=== PATIENT | male | born 1975 | race Caucasian/White ===

== ENCOUNTER 2020-04-14 15:54 | Emergency (ER) | payer BC, SELFPAY ==
[2020-04-14 15:57] VITALS: BP 183/95; PULSE 80; RESP 20; TEMP 36.7; O2SAT 97
--- NOTE | 2020-04-14 16:29 | ED.NECK ---
HPI - Neck Pain/Injury General Chief Complaint: Neck Pain/Injury Stated Complaint: neck pain Time Seen by Provider: 04/14/20 16:03 Source: patient Mode of arrival: ambulatory Limitations: no limitations History of Present Illness HPI Narrative: This is a 45 year old male who presents for evaluation of neck pain. He states he woke up last Tuesday morning with bilateral neck pain along the back. He states he thinks he just slept wrong. His pain is worse with moving his neck. HE denies any fall or acute injury. He denies pain radiating down his arms. HE denies numbness , tingling or arm weakness. He denies nausea, vomiting, fever, chills, cough, shortness of breath or chest pain. He reports he accidentally fell asleep in a chair a few days ago and his pain worsened. He was prescribed flexeril by his PCP and he took a dose at noon. He reports he coughed once so his family urged to come due to concern for covid. HE denies any symptoms or exposures. Related Data Allergies Allergy/AdvReac Type Severity Reaction Status Date / Time No Known Allergies Allergy Verified 04/14/20 16:01 Review of Systems Review of Systems: All systems reviewed & are unremarkable except as noted in HPI and below Constitutional: Constitutional: Denies chills and Denies fever(s) Eyes: Eyes: Denies change in vision ENT: Denies vertigo Cardiovascular: Cardiovascular: Denies chest pain Respiratory: Respiratory: Denies cough and Denies dyspnea Gastrointestinal: Gastrointestinal: Denies abdominal pain, Denies diarrhea and Denies vomiting Musculoskeletal: Comments: neck pain Neurologic: Denies dizziness, Denies focal weakness and Denies numbness [facility] Past Medical History Medical History (Updated 04/15/20 @ 00:00 by Background Daemon) Diabetes mellitus Hypertension Social History Social History Smoking status: Never smoker Gender identity (if verbalized by the patient): Male Exam Const: General: no acute distress and alert Orientation/consciousness: patient oriented x3 Eyes: Pupils: Equal, round and reactive pupils present EOM: EOMs intact bilaterally Neck: Neck: no lymphadenopathy and no meningeal signs Chest: Chest palpation & inspection: normal inspection of the chest Resp: Effort & Inspection: normal respiratory effort and no retractions Auscultation: clear to auscultation bilaterally Cardio: Rate: regular rate Rhythm: regular rhythm Heart sounds: no murmurs GI: GI Palp: Yes Soft to palpation, No Tenderness to palpation present (GI) and No Guarding due to palpation present (GI) Auscultation: normal bowel sounds Skin: General skin exam: normal color Rashes: no rashes Neuro: General: patient oriented x3, moves all extremities and no meningeal signs Cranial nerves: Yes Nystagmus not present Speech: normal speech Gait exam (Neuro): Normal gait present Psych: Mental Status: mental status grossly normal Affect: normal affect Course Reevaluation(s) Reevaluation #1: Patient states he feels better after toradol and valium. He is no focal deficits to suggest need for imaging. HE has appointment with PCP tomorrow Date: 04/14/20 Time: 17:56 Vital Signs Vital signs: Vital Signs Temperature 98.1 F 04/14/20 15:57 Pulse Rate 80 04/14/20 15:57 Respiratory Rate 20 04/14/20 15:57 Blood Pressure 183/95 H 04/14/20 15:57 Pulse Oximetry 97 04/14/20 15:57 Temperature 98.1 F 04/14/20 15:57 Pulse Rate 80 04/14/20 15:57 Respiratory Rate 20 04/14/20 15:57 Blood Pressure 183/95 H 04/14/20 15:57 Pulse Oximetry 97 04/14/20 15:57 Discharge Plan Discharge Clinical Impression: Torticollis Patient Disposition: Home, Self-Care Condition: Stable Instructions: Cervical Strain (ED), Spasmodic Torticollis (ED) Additional Instructions: Follow up with your primary care physician tomorrow. You can take 10 mg of cyclobenzaprine instead of 5 mg with Toradol. Prescriptions: New
[2020-04-14] MEDS: KETOROLAC (*BKC) 60 MG/2 ML VIAL IM (16:35)
[2020-04-14] MEDS: diazePAM (*CRX) 5 MG TABLET PO (16:38)
== END 2020-04-14 18:09 | disposition home or self-care (01) ==
PROVIDERS: Emergency Provider General Practice; PCP Internal Medicine
DX: M43.6 Torticollis (principal); E11.9 Type 2 diabetes mellitus without complications; I10 Essential (primary) hypertension
CPT/HCPCS: 96372; 99283; A9270; J1885

== ENCOUNTER 2021-09-28 21:44 | Emergency (ER) | payer OTHER, SELFPAY ==
--- NOTE | ~2021-09-28 | CT_ITS ---
EXAMINATION: CT abdomen pelvis w con DATE: 09/28/2021 23:36 INDICATION: Epigastric abdominal pain. TECHNIQUE: Computed tomography (CT) of the abdomen and pelvis was performed with 100 mL Omnipaque 350 intravenous contrast. Automated exposure control and iterative reconstruction technique were employe d. The dose-length product was 1049.89 mGy-cm. COMPARISON: None. FINDINGS: The visualized portions of the lung bases demonstrate mild atelectasis. No pleural effusion . The heart size is normal. No pericardial effusion. The liver, gallbladder, spleen, pancreas, and ad renal glands are normal. There are cysts in the kidneys measuring up to 10 mm on the right. There is a 4 mm stone in left kidney. There are no dilated loops of bowel. The appendix is normal. There is wa ll thickening of many loops of ileum, consistent with enteritis. There is liquid stool in the colon, suggestive of diarrhea. There is an umbilical hernia containing fat. There are no pathologically enla rged lymph nodes. There is trace ascites. There is mild thoracolumbar spondylosis. IMPRESSION: 1. Enteritis. Reviewed, dictated and finalized at location A. IMPRESSION: 1. Enteritis.
[2021-09-28 21:47] VITALS: BP 166/101; PULSE 86; RESP 19; TEMP 36.4; O2SAT 97
--- NOTE | 2021-09-28 22:16 | ED.ABDPAIN ---
HPI - Abdominal Pain General Chief Complaint: Abdominal Pain <Juanita Guillermo PA-C - Last Filed: 09/29/21 01:43> Stated Complaint: abd pain x 1 day <JONNY Baig Last Filed: 09/29/21 01:43> Time Seen by Provider: 09/28/21 22:09 <Juanita Guillermo PA-C - Last Filed: 09/29/21 01:43> Source: patient <JONNY Baig Last Filed: 09/29/21 01:43> Mode of arrival: ambulatory <JONNY Baig Last Filed: 09/29/21 01:43> Limitations: no limitations <Juanita Guillermo PA-C - Last Filed: 09/29/21 01:43> History of Present Illness HPI narrative: This is a 46 year old male that presents to the ER for epigastric pain since yesterday. Reports a constant dull ache. Intermittent sharp pains. Reports some diarrhea. Denies fever, nausea, vomiting. <Juanita Guillermo PA-C - Last Filed: 09/29/21 01:43> Related Data Home Medications: Home Medications Medication Instructions Recorded Confirmed No Home Medications 09/28/21 09/28/21 <Juanita Guillermo PA-C - Last Filed: 09/29/21 01:43> Allergies/Adverse Reactions: Allergies Allergy/AdvReac Type Severity Reaction Status Date / Time No Known Allergies Allergy Verified 09/28/21 21:51 <Juanita Guillermo PA-C - Last Filed: 09/29/21 01:43> Review of Systems Review of Systems: CONSTITUTIONAL: Denies fever GASTROINTESTINAL: Reports abdominal pain, and diarrhea. Denies nausea and vomiting <JONNY Baig Last Filed: 09/29/21 01:43> All systems reviewed & are unremarkable except as noted in HPI and below <Juanita Guillermo PA-C - Last Filed: 09/29/21 01:43> [facility] Past Medical History Medical History: Medical History (Updated 09/29/21 @ 01:28 by Juanita Guillermo PA-C) Diabetes mellitus Hypertension <Juanita Guillermo PA-C - Last Filed: 09/29/21 01:43> Social History Social History: Social History (Updated 09/28/21 @ 22:16 by Juanita Guillermo PA-C) Smoking status: Never smoker Alcohol intake: current Substance use: never Gender identity (if verbalized by the patient): Male <Juanita Guillermo PA-C - Last Filed: 09/29/21 01:43> Exam Narrative: GENERAL: Well-appearing, well-nourished, and in no acute distress. HEAD: Normocephalic, atraumatic. EYES: EOMI. CHEST: Clear to auscultation. No respiratory distress. No wheezes rales or rhonchi HEART: Regular rate and rhythm. No murmur heard. Normal peripheral pulses. ABDOMEN: Soft, nontender, nondistended, normal active bowel sounds. EXTREMITIES: Normal range of motion. No edema. SKIN: Warm, dry, no rash. NEURO: No focal deficits. Alert and oriented x3. PSYCH: Normal mood and affect <Juanita Guillermo PA-C - Last Filed: 09/29/21 01:43> Course WINE CONSULTANT/PA Physician Supervision For this patient encounter, I reviewed the WINE CONSULTANT or PA documentation, treatment plan, and medical decision making <Chandrakant Betancourt MD - Last Filed: 09/29/21 03:55> Vital Signs Vital signs: Vital Signs Temperature 97.6 F 09/28/21 21:47 Pulse Rate 86 09/28/21 21:47 Respiratory Rate 19 09/28/21 21:47 Blood Pressure 166/101 H 09/28/21 21:47 Pulse Oximetry 97 09/28/21 21:47 Oxygen Delivery Room Air 09/28/21 21:47 Temperature 97.6 F 09/28/21 21:47 Pulse Rate 78 09/29/21 02:15 Respiratory Rate 19 09/29/21 02:15 Blood Pressure 150/94 H 09/29/21 02:15 Pulse Oximetry 97 09/29/21 02:15 Oxygen Delivery Room Air 09/28/21 21:47 <Juanita Guillermo PA-C - Last Filed: 09/29/21 01:43> Vital Signs Temperature 97.6 F 09/28/21 21:47 Pulse Rate 86 09/28/21 21:47 Respiratory Rate 19 09/28/21 21:47 Blood Pressure 166/101 H 09/28/21 21:47 Pulse Oximetry 97 09/28/21 21:47 Oxygen Delivery Room Air 09/28/21 21:47 Temperature 97.6 F 09/28/21 21:47 Pulse Rate 78 09/29/21 02:15 Respiratory Rate 19 09/29/21 02:15 Blood Pressure 150/94 H 09/29/21 02:15 Pulse Oximetry 97 09/29/21 02:1
[2021-09-28] MEDS: ONDANSETRON INJ 4 MG/2 ML VIAL IV PUSH (22:33)
[2021-09-28] MEDS: PANTOPRAZOLE SODIUM IV 40 MG VIAL IV PUSH (22:33)
[2021-09-28 22:45] LABS: Basophils Percent Auto 0.5 % (0.2-1.2); Eosinophils Absolute Auto 0.1 K/mm3 (0-0.3); Eosinophils Percent Auto 1.7 % (0-4.4); Hemoglobin 15.5 g/dL (14.0-18.0); Immature Granulocyte Absolute 0.02 K/mm3 (0.00-0.031); Immature Granulocyte Percent A 0.2 % (0-0.5); Lymphocytes Absolute Auto 1.46 K/mm3 (0.9-3.2); Lymphocytes Percent Auto 18.2 % (18.3-44.2); Mean Corpuscular HGB Conc 33.7 g/dl (32-36); Mean Corpuscular Hemoglobin 27.8 pg (26-34); Mean Corpuscular Volume 82.4 fl (80-100); Mean Platelet Volume 9.9 fl (7.4-10.4); Monocytes Absolute Auto 0.8 K/mm3 (0.1-0.6); Neutrophils Absolute Auto 5.6 K/mm3 (1.3-6.7); Neutrophils Percent Auto 69.4 % (45.5-73.1); Platelet Count Result 217 k/mm3 (150-375); Red Blood Count 5.58 M/mm3 (4.6-6.20); Red Cell Distribution Width 12.8 % (11.5-14.5)
[2021-09-28 22:59] LABS: Alanine Aminotransferase 39 U/L (6-50); Albumin Level 4.5 g/dL (3.5-5.1); Alkaline Phosphatase 76 U/L (38-126); Anion Gap 9 mmol/L (8-16); Aspartate Amino Transferase 30 U/L (17-59); Bilirubin,Total 0.7 mg/dL (0.2-1.3); Blood Urea Nitrogen 18 mg/dL (9-20); Calcium 9.2 mg/dL (8.4-10.2); Carbon Dioxide 29 mmol/L (22-30); Chloride 95 mmol/L (98-107); Estimated CRCL calculation 100 ml/min; Estimated Glomerular Filt Rate > 60; Glucose 376 mg/dL (65-110); Lipase 96 U/L (23-300); Potassium 3.9 mmol/L (3.4-5.0); Sodium 133 mmol/L (137-145)
--- NOTE | 2021-09-28 23:15 | PC.NURSE ---
called Gianna in lab @[id number] to add on HBG A1C -NC
[2021-09-28 23:24] LABS: Hemoglobin A1C 11.2 % (<5.7)
[2021-09-28 23:39] LABS: Appearance Urine Clear (Clear); Bilirubin Urine Negative (Negative); Color Urine Yellow (Yellow); Glucose Urine UA 3+ mg/dL (Negative); Ketones Urine Trace mg/dL (Negative); Leukocyte Esterase Ur Negative LEU/UL (Negative); Nitrate Urine Negative (Negative); Protein Urine Trace mg/dL (Negative); Specific Grav Ur 1.015 (1.001-1.035); Urobilinogen Urine 0.2 mg/dL (<2.0)
[2021-09-28 23:40] LABS: Add Urine Microscopic? YES; Blood Urine Trace (Negative)
[2021-09-28 23:43] LABS: Mucus Urine Rare /lpf; RBC Urine 0-2 /hpf (0-2); WBC Urine 0-3 /hpf
[2021-09-29 02:15] VITALS: BP 150/94; PULSE 78; RESP 19; O2SAT 97
== END 2021-09-29 01:53 | disposition home or self-care (01) ==
PROVIDERS: Physician Assistant; Emergency Provider Emergency Medicine
DX: K52.9 Noninfective gastroenteritis and colitis, unspecified (principal); E11.9 Type 2 diabetes mellitus without complications; I10 Essential (primary) hypertension
CPT/HCPCS: 36415; 74177; 80053; 81001; 83036; 83690; 85025; 96365; 96375; 99284; C9113; J0131; J2405; Q9967